=== PATIENT | female | born 1965 | race Caucasian/White ===

== ENCOUNTER → 2022-05-03 | Outpatient (CLI) | payer OTHER ==
[~2022-05-03] MED LIST: HYDACE5 PO; TRAM50 PO
[2022-05-06 15:09] LABS: HPV 16 Negative (Negative); HPV 18 Negative (Negative); HPV OTHER HR TYPES Negative (Negative)
== END | disposition home or self-care (01) ==
LOC: LAB 13:45 → LAB SHORT 13:45
PROVIDERS: Nurse Practitioner Family
DX: Z11.51 Encounter for screening for human papillomavirus (HPV) (principal)
CPT/HCPCS: 87624; G0123

== ENCOUNTER 2025-01-27 06:15 | Day surgery (SDC) | payer OTHER ==
[~2025-01-27] VITALS: Ht 175.3 cm; Wt 97.3 kg
[2025-01-27] MEDS ORDERED: propofoL 20 ML IV ONE ×2 (06:28→08:22)
[2025-01-27] MEDS ORDERED: FentaNYL Citrate 50 MCG/ML 2 ML Injection ONE (06:28)
[2025-01-27] MEDS ORDERED: Dexamethasone Sod Phos 10 MG/ML 1ML VIAL ONE (06:28)
[2025-01-27] MEDS ORDERED: Sugammadex Sodium 200 MG/2ML SDV (100 MG/ML) ONE (06:28)
[2025-01-27] MEDS ORDERED: Rocuronium Bromide 10 MG/ML 5ML Injection IV ONE (06:28)
[2025-01-27] MEDS ORDERED: Ondansetron HCl 2 MG / ML 2ML Vial ONE (06:28)
[2025-01-27] MEDS ORDERED: Lactated Ringer's 1,000 ML IV ONE ×2 (06:41→07:08)
[2025-01-27] MEDS ORDERED: Lidocaine HCl 2% 10 ML SDA ONE (06:55)
--- NOTE | 2025-01-27 07:19 | NUR ---
01/27/[address] SAW PT AT 0717. DR. POTTS SAW PT AT 0700. DR. PENA SAW PT AT 0705. PT'S DAUGHTER AT BEDSIDE, VSS. PT PLEASANT AND COOPERATIVE WITH CARE PROVIDED. ALL QUESTIONS ANSWERED, AND CONCERNS ADDRESSED. WCTM.
[2025-01-27] MEDS ORDERED: CeFAZolin Sodium 1000 mg Vial ONE (07:42)
[2025-01-27] MEDS ORDERED: Bupivacaine 0.5% HCl 5 MG/ML 30MLVIAL XX ONE (07:57)
[2025-01-27 09:15] VITALS: BP 124/76
== END 2025-01-27 10:20 | disposition home or self-care (01) ==
LOC: ORSCSDS 06:15
PROVIDERS: Surgery
PROC: 0JBJ0ZX Excision of Right Hand Subcutaneous Tissue and Fascia, Open Approach, Diagnostic (ICD-10-PCS; principal; 2025-01-27 07:30)
DX: D17.1 Benign lipomatous neoplasm of skin and subcutaneous tissue of trunk (principal); L72.11 Pilar cyst; M67.441 Ganglion, right hand; J45.909 Unspecified asthma, uncomplicated; F17.210 Nicotine dependence, cigarettes, uncomplicated; F31.9 Bipolar disorder, unspecified; F41.9 Anxiety disorder, unspecified
CPT/HCPCS: 88304; J0690; J1100; J2003; J2405; J2704; J3010; J7120